=== PATIENT | female | born 1940 | race Caucasian/White ===

== ENCOUNTER 2021-03-18 16:51 | Inpatient (IN) ==
[2021-03-18] MEDS ORDERED: Albuterol HFA INHALER 8 gm MDI INH ONE (17:29)
[2021-03-18] MEDS ORDERED: methylPREDNISolone 125 mg 2 ML VIAL IV ONE (17:31)
[2021-03-18 18:52] LABS: ABS Lymphocytes 1.9 10^3/ul (1.0-4.8); ABS Monocytes 0.5 10^3/ul (0-0.8); ABS Neutrophils 1.7 10^3/ul (1.5-7.7); Eosinophil % 0.4 %; Hematocrit 38 % (35-47); Hemoglobin 12.9 g/dL (12.0-16.0); Lymphocyte % 45.4 %; Mean Corpuscular HGB Conc 34 g/dL (31-36); Mean Corpuscular Hemoglobin 31 pg (27-31); Mean Corpuscular Volume 91 fL (80-97); Mean Platelet Volume 9.1 fL (7.4-10.4); Nucleated Red Blood Cells % 0.1; Platelet Count 116 10^3/uL (150-450); Red Cell Distribution Width 15 % (10-15); White Blood Count 4.2 10^3/uL (3.5-10.8)
[2021-03-18 19:00] LABS: Rapid COVID-19 Molecular Detected (Undetected)
[2021-03-18] MEDS: NS 0.9% 1000 ml BAG 1,000 ML IV SCH (19:00)
[2021-03-18 19:10] LABS: Albumin 4.2 g/dL (3.2-5.2); Albumin/Globulin Ratio 1.3 (1-3); Calcium 9.2 mg/dL (8.6-10.3); Globulin 3.3 g/dL (2-4); Total Bilirubin 0.4 mg/dL (0.2-1.0); Total Protein 7.5 g/dL (6.4-8.9)
[2021-03-18] MEDS ORDERED: Remdesivir 100 mg Vial 200 MG in NS 0.9% 250 ml 210 ML IV ONE (20:57)
[2021-03-18] MEDS ORDERED: Albuterol HFA INHALER 8 gm MDI INH PRN (22:10)
[2021-03-18] MEDS ORDERED: Dextrose 50% Syringe 50 ml 25 GM/50 ML SYRINGE IV PUSH PRN (22:10)
[2021-03-18] MEDS: Enoxaparin 40 MG/0.4 ML SYR SUBCUT SCH (23:06)
[2021-03-19 01:26] LABS: INR 1.24 (0.86-1.15)
[2021-03-19] MEDS: NS 0.9% 1000 ml BAG 1,000 ML IV SCH ×2 (03:07→12:37)
[2021-03-19] MEDS: Polyethylene Glycol 3350 17 GM PACKET PO PRN ×2 (03:15→12:33)
[2021-03-19 06:07] LABS: Albumin 4.1 g/dL (3.2-5.2); Calcium 8.7 mg/dL (8.6-10.3); Total Bilirubin 0.5 mg/dL (0.2-1.0)
[2021-03-19 06:13] LABS: Albumin/Globulin Ratio 1.3 (1-3); Globulin 3.1 g/dL (2-4); Total Protein 7.2 g/dL (6.4-8.9)
[2021-03-19 06:14] LABS: Potassium 4.5 mmol/L (3.5-5.0)
[2021-03-19 08:10] LABS: INR 1.13 (0.86-1.15)
[2021-03-19 08:21] LABS: Albumin 4.1 g/dL (3.2-5.2); Albumin/Globulin Ratio 1.3 (1-3); Calcium 8.9 mg/dL (8.6-10.3); Globulin 3.1 g/dL (2-4); Potassium 3.8 mmol/L (3.5-5.0); Total Bilirubin 0.4 mg/dL (0.2-1.0); Total Protein 7.2 g/dL (6.4-8.9)
[2021-03-19] MEDS ORDERED: Remdesivir 100 mg Vial 100 MG in NS 0.9% 250 ml 230 ML IV SCH (21:00)
[2021-03-19] MEDS: Enoxaparin 40 MG/0.4 ML SYR SUBCUT SCH (21:49)
[2021-03-20 07:13] LABS: INR 1.21 (0.86-1.15)
[2021-03-20 07:20] LABS: Albumin 3.9 g/dL (3.2-5.2); Albumin/Globulin Ratio 1.3 (1-3); Globulin 2.9 g/dL (2-4); Potassium 3.6 mmol/L (3.5-5.0); Total Bilirubin 0.5 mg/dL (0.2-1.0); Total Protein 6.8 g/dL (6.4-8.9)
[2021-03-20 11:45] VITALS: BP 145/71
== END 2021-03-20 14:55 | disposition home or self-care (01) | DRG 177 ==
LOC: ED 16:51 → SUATTDRO 20:57 → MED 20:57
PROVIDERS: ADMIT Hospitalist; ATTEND Internal Medicine

== ENCOUNTER 2024-02-26 05:55 | Inpatient (IN) ==
[2024-02-26] MEDS: Acetaminophen IV 1 GM/100ML 1,000 MG/100 ML BAG IV ONE (06:38)
[2024-02-26] MEDS: Morphine 2 MG/ML SYRINGE IV ONE ×2 (06:38→07:48)
[2024-02-26 07:17] LABS: ABS Eosinophils 0.1 10^3/uL (0.0-0.5); ABS Lymphocytes 2.1 10^3/uL (1.0-4.8); ABS Monocytes 0.5 10^3/uL (0.0-0.9); ABS Neutrophils 3.1 10^3/uL (1.5-7.6); Eosinophil % 1.2 %; Hemoglobin 12.4 g/dL (11.5-14.3); Lymphocyte % 35.9 %; Mean Corpuscular Hemoglobin 30.8 pg (27-33); Mean Corpuscular Hgb Conc 33.5 g/dL (31-36); Mean Corpuscular Volume 91.8 fL (80-97); Mean Platelet Volume 8.7 fL (7.5-11.2); Nucleated Red Blood Cells % 0.1 %/100WBC (0.0-0.8); Platelet Count 111 10^3/uL (150-450); Red Blood Count 4.03 10^6/uL (3.63-4.92); Red Cell Distribution Width 14.6 % (12-17); White Blood Count 5.7 10^3/uL (3.8-11.8)
[2024-02-26 08:13] LABS: Albumin 3.9 g/dL (3.2-5.2); Albumin/Globulin Ratio 1.8 (1-3); Calcium 8.8 mg/dL (8.6-10.3); Creatinine, Serum 0.79 mg/dL (0.51-0.95); Globulin 2.2 g/dL (2-4); Total Bilirubin 0.5 mg/dL (0.2-1.0); Total Protein 6.1 g/dL (6.4-8.9); eGFR CKD-EPI 73.3 (>60)
[2024-02-26 08:44] LABS: High Sensitivity Troponin 1 Hr 5 pg/mL (<15)
[2024-02-26] MEDS: Morphine 4 MG/ML VIAL (1 ml) IV ONE (08:48)
[2024-02-26] MEDS ORDERED: Albuterol HFA INHALER 8 gm MDI INH PRN (10:00)
[2024-02-26] MEDS ORDERED: fentaNYL 100 mcg/2 ml 50 MCG/ML VIAL IV SLOW PU PRN (10:02)
[2024-02-26] MEDS ORDERED: Dextrose 50% Syringe 50 ml 25 GM/50 ML SYRINGE IV PUSH PRN (10:03)
[2024-02-26] MEDS: Ondansetron 4 mg VIAL 2 MG/ML 2 ml VIAL IV PRN (12:37)
[2024-02-26] MEDS ORDERED: ROPIVACAINE 5 MG/ML 30 ML BTL (0.5%) ONE (15:08)
[2024-02-26] MEDS ORDERED: Bupivacaine 0.5% 50 ML MDV VIAL ONE (15:27)
[2024-02-26] MEDS ORDERED: Propofol 10 MG/ML 20 ML BTL ONE (15:34)
[2024-02-26] MEDS ORDERED: Rocuronium 50 mg VIAL 10 mg/ml 5 ml VIAL (50 mg) ONE (15:34)
[2024-02-26] MEDS ORDERED: Lidocaine 2% PF 5 ML VIAL ONE (15:34)
[2024-02-26] MEDS ORDERED: fentaNYL 100 mcg/2 ml 50 MCG/ML VIAL ONE (15:35)
[2024-02-26] MEDS ORDERED: Midazolam 2 mg/2 ml VIAL 1 mg/ml 2 ml VIAL (2 mg) ONE (15:35)
[2024-02-26] MEDS ORDERED: Dexamethasone IV 4 MG/ML VIAL 1 ml VIAL ONE (15:36)
[2024-02-26] MEDS ORDERED: Ondansetron 4 mg VIAL 2 MG/ML 2 ml VIAL ONE (15:36)
[2024-02-26] MEDS: Haloperidol 5 mg/ml SDV IV/IM 5 MG/ML AMP IM ONE (18:18)
[2024-02-27] MEDS: Morphine 2 MG/ML SYRINGE IV PRN ×2 (00:04→21:12)
[2024-02-27 07:52] LABS: ABS Basophils 0.1 10^3/uL (0.0-0.1); ABS Lymphocytes 0.3 10^3/uL (1.0-4.8); ABS Monocytes 0.5 10^3/uL (0.0-0.9); ABS Neutrophils 14.1 10^3/uL (1.5-7.6); Hematocrit 27.8 % (35-45); Hemoglobin 9.1 g/dL (11.5-14.3); Lymphocyte % 2.2 %; Mean Corpuscular Hgb Conc 32.9 g/dL (31-36); Mean Corpuscular Volume 97.3 fL (80-97); Mean Platelet Volume 8.4 fL (7.5-11.2); Platelet Count 461 10^3/uL (150-450); Red Blood Count 2.86 10^6/uL (3.63-4.92); Red Cell Distribution Width 15.9 % (12-17)
[2024-02-27 08:48] LABS: Anion Gap 5 mmol/L (2-16); Blood Urea Nitrogen 28 mg/dL (6-24); CO2 Carbon Dioxide 18 mmol/L (22-32); Calcium 8.7 mg/dL (8.6-10.3); Chloride 102 mmol/L (101-111); Creatinine, Serum 0.52 mg/dL (0.51-0.95); Glucose 844 mg/dL (70-100); Sodium 125 mmol/L (135-145)
[2024-02-27] MEDS: Cholecalciferol (VIT D3) 1,000 unit TAB PO SCH (09:03)
[2024-02-27 11:46] LABS: Calcium 8.9 mg/dL (8.6-10.3); Creatinine, Serum 0.95 mg/dL (0.51-0.95); Potassium 4.1 mmol/L (3.5-5.0); eGFR CKD-EPI 58.7 (>60)
[2024-02-27 13:05] LABS: Potassium 6.9 mmol/L (3.5-5.0)
[2024-02-27] MEDS ORDERED: fentaNYL 100 mcg/2 ml 50 MCG/ML VIAL ONE ×4 (13:48→19:54)
[2024-02-27] MEDS ORDERED: Lidocaine 2% PF 5 ML VIAL ONE (13:48)
[2024-02-27] MEDS ORDERED: Dexamethasone IV 4 MG/ML VIAL 1 ml VIAL ONE (13:48)
[2024-02-27] MEDS ORDERED: Rocuronium 50 mg VIAL 10 mg/ml 5 ml VIAL (50 mg) ONE ×2 (13:48→17:32)
[2024-02-27] MEDS ORDERED: Ondansetron 4 mg VIAL 2 MG/ML 2 ml VIAL ONE (13:48)
[2024-02-27] MEDS ORDERED: Bupivacaine 0.5% SDV PF 30ML VIAL ONE (16:00)
[2024-02-27] MEDS ORDERED: Sterile Water for Inj 10 ML ONE (16:46)
[2024-02-27] MEDS ORDERED: ceFAZolin VIAL VIAL ONE (16:46)
[2024-02-27] MEDS ORDERED: Metoprolol Tartrate 5 mg VIAL 5 ml VIAL (1 mg/ml) ONE (18:59)
[2024-02-27] MEDS ORDERED: Dexmedetomidine 200 mcg/2 ml 2 ml VIAL (200 mcg) ONE (19:09)
[2024-02-27] MEDS ORDERED: Naloxone 0.4 mg VIAL 0.4 mg/ml 1 ml VIAL IV PRN (19:30)
[2024-02-27] MEDS ORDERED: Metoclopramide 5 MG/ML VIAL (10 mg) IV PRN (19:30)
[2024-02-27] MEDS ORDERED: Ondansetron 4 mg VIAL 2 MG/ML 2 ml VIAL IV PRN (19:30)
[2024-02-27] MEDS ORDERED: Albuterol 2.5mg/3 ml (0.083%) NEB.SOLN INH PRN (19:38)
[2024-02-27] MEDS ORDERED: Albuterol 2.5mg/3 ml (0.083%) NEB.SOLN INH ONE (19:40)
[2024-02-27] MEDS: fentaNYL 100 mcg/2 ml 50 MCG/ML VIAL IV PRN (20:00)
[2024-02-27] MEDS ORDERED: NS 0.45% 1000 ml BAG 1,000 ML IV SCH (20:00)
[2024-02-27] MEDS: Lactated Ringers 1000 ml BAG 1,000 ML IV SCH ×2 (21:25→21:35)
[2024-02-27] MEDS: Buffered Lidocaine 1% SYRIN 1 ml INTRADERM ONE (21:34)
[2024-02-27] MEDS: Scopolamine 1 mg/72hr PATCH TRANSDERM ONE (21:34)
[2024-02-27] MEDS: Acetaminophen IV 1 GM/100ML 1,000 MG/100 ML BAG IV ONE (21:34)
[2024-02-27 22:44] LABS: Hematocrit 33.5 % (35-45); Hemoglobin 10.9 g/dL (11.5-14.3)
[2024-02-28] MEDS: ceFAZolin 2 GM PREMIX 2 GM/50 ML BAG IV SCH (00:42)
[2024-02-28 06:27] LABS: ABS Lymphocytes 1.5 10^3/uL (1.0-4.8); ABS Monocytes 1.2 10^3/uL (0.0-0.9); ABS Neutrophils 5.7 10^3/uL (1.5-7.6); Hemoglobin 10.2 g/dL (11.5-14.3); Lymphocyte % 17.9 %; Mean Corpuscular Hemoglobin 31.2 pg (27-33); Mean Corpuscular Hgb Conc 33.9 g/dL (31-36); Mean Corpuscular Volume 91.9 fL (80-97); Mean Platelet Volume 9.8 fL (7.5-11.2); Platelet Count 105 10^3/uL (150-450); Red Blood Count 3.27 10^6/uL (3.63-4.92); Red Cell Distribution Width 14.7 % (12-17); White Blood Count 8.4 10^3/uL (3.8-11.8)
[2024-02-28 07:38] LABS: Calcium 8.3 mg/dL (8.6-10.3); Creatinine, Serum 0.99 mg/dL (0.51-0.95); Potassium 4.1 mmol/L (3.5-5.0); eGFR CKD-EPI 55.9 (>60)
[2024-02-28] MEDS: Enoxaparin 40 MG/0.4 ML SYR SUBCUT SCH (13:30)
[2024-02-29] MEDS: Magnesium Hydroxide LIQ 30 ML UDC PO PRN (21:14)
[2024-02-29] MEDS: Senna TAB 8.6 mg TAB PO PRN (21:16)
[2024-03-01 08:55] LABS: ABS Eosinophils 0.1 10^3/uL (0.0-0.5); ABS Lymphocytes 1.7 10^3/uL (1.0-4.8); ABS Monocytes 0.6 10^3/uL (0.0-0.9); ABS Neutrophils 2.8 10^3/uL (1.5-7.6); Eosinophil % 1.3 %; Hematocrit 26.5 % (35-45); Hemoglobin 8.8 g/dL (11.5-14.3); Lymphocyte % 32.7 %; Mean Corpuscular Hemoglobin 30.7 pg (27-33); Mean Corpuscular Hgb Conc 33.3 g/dL (31-36); Mean Corpuscular Volume 92.3 fL (80-97); Mean Platelet Volume 9.2 fL (7.5-11.2); Nucleated Red Blood Cells % 0.1 %/100WBC (0.0-0.8); Platelet Count 121 10^3/uL (150-450); Red Blood Count 2.87 10^6/uL (3.63-4.92); Red Cell Distribution Width 14.4 % (12-17); White Blood Count 5.1 10^3/uL (3.8-11.8)
[2024-03-01] MEDS: Polyethylene Glycol 3350 17 GM PACKET PO PRN (08:56)
[2024-03-01 09:42] LABS: Calcium 8.2 mg/dL (8.6-10.3); Creatinine, Serum 0.61 mg/dL (0.51-0.95); Potassium 4.3 mmol/L (3.5-5.0); eGFR CKD-EPI 87.6 (>60)
[2024-03-02 05:45] LABS: ABS Eosinophils 0.1 10^3/uL (0.0-0.5); ABS Monocytes 0.5 10^3/uL (0.0-0.9); ABS Neutrophils 2.3 10^3/uL (1.5-7.6); ABS Nucleated RBC 0.01 10^3/ul; Eosinophil % 2.1 %; Hematocrit 28.8 % (35-45); Lymphocyte % 40.4 %; Mean Corpuscular Hemoglobin 30.6 pg (27-33); Mean Corpuscular Hgb Conc 31.2 g/dL (31-36); Mean Corpuscular Volume 97.8 fL (80-97); Mean Platelet Volume 9.7 fL (7.5-11.2); Nucleated Red Blood Cells % 0.2 %/100WBC (0.0-0.8); Platelet Count 103 10^3/uL (150-450); Red Blood Count 2.95 10^6/uL (3.63-4.92); Red Cell Distribution Width 15.3 % (12-17); White Blood Count 4.9 10^3/uL (3.8-11.8)
[2024-03-02 06:54] LABS: Calcium 8.4 mg/dL (8.6-10.3); Creatinine, Serum 0.69 mg/dL (0.51-0.95); Potassium 4.7 mmol/L (3.5-5.0)
[2024-03-02] MEDS: Enoxaparin 40 MG/0.4 ML SYR SUBCUT ONE (15:44)
[2024-03-03 05:54] VITALS: BP 141/63
[2024-03-03] MEDS: Enoxaparin 80 MG/0.8 ML SYR SUBCUT SCH ×2 (07:53→07:55)
== END 2024-03-03 08:32 | DRG 481 ==
LOC: ED 05:55 → SUATTDRO 09:59 → EDHOLD 09:59 → AA 13:44 → SSU 17:52
PROVIDERS: ADMIT Student in an Organized Health Care Education/Training Program; ATTEND Student in an Organized Health Care Education/Training Program